=== PATIENT | male | born 1945 | race Caucasian/White ===

== ENCOUNTER 2021-02-28 09:16 | Outpatient (CLI) | payer OTHER, SELFPAY ==
--- NOTE | 2021-02-28 09:23 | USCV_ITS ---
BeniRamesh Age: 75 Gender: M : 1945 Exam Date: 02/28/2021 09:36 Ordering Phys: Surekha Pond MD Technologist: MARCELO BUSTAMANTE [place] [facility] [place] Indication: KNOWN AAA AND ILIAC AA HISTORY: Diameter (cm) AP x Transverse x Length Velocity (cm/s) Waveform Prox Aorta: 1.70 x 2.18 x 27.50 Mid Aorta: 1.38 x 2.29 x 31.80 Distal Aorta: 2.98 x 2.53 x 27.50 Right Iliac Prox: 1.96 x 2.66 x Left Iliac Prox: 2.71 x 2.96 x 40.50 Stent Prox Landing x x Aneurysmal Sac Max x x Lt Lat Sac Dim Rt Lat Sac Dim Stent Dist Landing x x Right Iliac Stent x x Left Iliac Stent x x Right Renal Art Left Renal Art FINDINGS: Mild to moderate plaque in the iliac arteries bilaterally Aneurysmal dilatation of the iliac arteries bilaterally CONCLUSIONS #1. Ectatic distal abdominal aorta measuring 2.98 x 2.53 cm. #2. Iliac artery aneurysms bilaterally, measuring 1.96 x 2.66 on the right side and 2.71 x 2.96 on the left side. No similar previous studies are available for comparison Dr Gary Camacho MD [facility] (Electronically Signed) Final Date: 01 March 2021 15:39 S
== END 2021-02-28 09:17 | disposition home or self-care (01) ==
LOC: US 09:19
PROVIDERS: PCP Family Medicine; Visit Provider Family Medicine
DX: I71.4 Abdominal aortic aneurysm, without rupture (principal); I72.3 Aneurysm of iliac artery
CPT/HCPCS: 93978

== ENCOUNTER 2021-05-30 07:48 | Outpatient (CLI) | payer OTHER, SELFPAY ==
--- NOTE | 2021-05-30 08:00 | CT_ITS ---
WS: [id number] CTA ABDOMINAL AORTA WITH RUNOFF TECHNIQUE: Contrast enhanced CTA of the abdominal aorta with bilateral lower extremity runoff. Multip lanar reformatted images were obtained. MIP reformats were also reviewed. CLINICAL INFORMATION: M79.606 - Pain in leg, unspecified COMPARISON: CTa 2017 DLP: 2006.[address] scans at [facility] use at least one of these dose optimization techniques: automated e xposure control; mA and/or kV adjustment per patient size (includes targeted exams where dose is matc hed to clinical indication); or iterative reconstruction. FINDINGS: Infrarenal abdominal aortic aneurysm measuring 3.2 x 3.1 CM. This celiac and SMA are patent . Mild stenosis at the celiac origin. Renal arteries are patent. JENI is patent. RIGHT: Densely calcified iliac arteries. Right common iliac artery is patent. Internal iliac artery i s patent. Densely calcified external iliac artery with moderate segmental stenosis remains patent. Ri ght common femoral artery is patent with dense calcification. Approximately 50% right common femoral stenosis in the groin slightly progressed. Deep femoral artery is patent. Superficial femoral artery is patent at the origin with moderate segmental stenosis. High-grade SFA stenosis in the mid thigh ap pears similar but slightly progressed compared to previous. Superficial femoral artery is patent to t he popliteal hiatus. Popliteal artery is patent to the popliteal fossa and is occluded at the level of the aneurysm. Aneurysm is similar in appearance measuring 2.6 x 1.3 x 3.1 cm. Reconstitution of th e calf arteries with tiny patent posterior tibial and peroneal runoff. No significant flow in the ant erior tibial artery. LEFT: Left common iliac artery is patent. Densely calcified iliac arteries. Severe stenosis of the in ternal iliac artery origin. External iliac artery is densely calcified but patent. Common femoral art rosalee is patent. Superficial femoral artery is occluded at the origin. Deep femoral artery is patent. S uperficial femoral artery remains occluded to the popliteal hiatus. Reconstitution of flow in the pop liteal artery patent to the trifurcation. 2 vessel posterior tibial and peroneal runoff. No significa nt flow in the anterior tibial artery. Hepatomegaly. Cholelithiasis. Normal spleen. Normal GE junction. Fatty atrophy of the pancreas. Adren al glands are normal. Normal renal parenchymal enhancement. No hydronephrosis. Sigmoid diverticulosis. No evidence of acute diverticulitis. No abdominal or pelvic lymphadenopathy. No inguinal lymphadenopathy. Hazy atelectasis in the lung bases. MPRESSION: 1. Infrarenal abdominal aortic aneurysm measuring 3.2 x 3.1 CM. Stable compared to previous 2. RIGHT: 50% stenosis in the right common femoral artery in the groin. High-grade stenosis in the S FA in the mid thigh appears slightly progressed. Popliteal artery is occluded at the level of the thr ombosed aneurysm. Calf arteries reconstitute with two-vessel posterior tibial and peroneal runoff sim ilar to 2017. Stable appearing popliteal aneurysm with thrombosis. 3. LEFT: Left superficial femoral artery is occluded and remains occluded to the adductor hiatus. Re constitution of the popliteal artery with flow to the trifurcation. Dominant posterior tibial and per hankins runoff. No significant flow in the anterior tibial artery. Left-sided arterial findings are unc hanged. 4. Nonvascular findings as described above.
[2021-05-30 08:36] LABS: Blood Urea Nitrogen 11 mg/dL (8-23)
[2021-05-30] MEDS: iohexol 350 mg/mL 100 mL Btl IV (15:00)
== END 2021-05-30 07:49 | disposition home or self-care (01) ==
PROVIDERS: PCP Family Medicine; Visit Provider Thoracic Surgery (Cardiothoracic Vascular Surgery)
DX: M79.606 Pain in leg, unspecified (principal); I71.4 Abdominal aortic aneurysm, without rupture; I70.8 Atherosclerosis of other arteries
CPT/HCPCS: 75635; 82565; 84520; Q9967

== ENCOUNTER → 2021-07-02 09:43 | Outpatient (BNVA) | payer OTHER, SELFPAY | PROVIDERS: PCP Family Medicine; Referring Provider Internal Medicine Cardiovascular Disease; Visit Provider Internal Medicine Cardiovascular Disease | DX: Z01.818 Encounter for other preprocedural examination (principal); I73.9 Peripheral vascular disease, unspecified; I10 Essential (primary) hypertension; E11.9 Type 2 diabetes mellitus without complications; Z20.822 Contact with and (suspected) exposure to COVID-19 | CPT/HCPCS: 80048; 85025; 85610 ==

== ENCOUNTER 2021-07-18 05:55 | Outpatient (CLI) | payer OTHER, SELFPAY ==
[2021-07-02 16:06] LABS: Adenovirus Not Detected (NOT DETECT); Chlamydia Pneumoniae Not Detected (NOT DETECT); Coronavirus 229E,HKU1,NL63,OC4 Not Detected (NOT DETECT); Human Metapneumovirus Not Detected (NOT DETECT); Human Rhinovirus/Enterovirus Not Detected (NOT DETECT); Influenza A Not Detected (NOT DETECT); Influenza A H1 Not Detected (NOT DETECT); Influenza A H1-2009 Not Detected (NOT DETECT); Influenza A H3 Not Detected (NOT DETECT); Influenza B Not Detected (NOT DETECT); Mycoplasma Pneumoniae Not Detected (NOT DETECT); Parainfluenza Virus Type 1 Not Detected (NOT DETECT); Parainfluenza Virus Type 2 Not Detected (NOT DETECT); Parainfluenza Virus Type 3 Not Detected (NOT DETECT); Parainfluenza Virus Type 4 Not Detected (NOT DETECT); Respiratory Syncytial Virus A Not Detected (NOT DETECT); Respiratory Syncytial Virus B Not Detected (NOT DETECT); SARS-COV-2 Not Detected (NOT DETECT)
[2021-07-18 06:20] VITALS: BP 137/80; PULSE 61; RESP 18; TEMP 36.2; O2SAT 96; BMI 32.3
[2021-07-18] MEDS: diphenhydrAMINE 50 mg Capsule PO (06:44)
--- NOTE | 2021-07-18 08:48 | PC.NURSE ---
Dr. Moore determined the patient would be better served with a surgery consult. After speaking with the patient and family the patient should go home.
== END 2021-07-18 05:56 | disposition home or self-care (01) ==
PROVIDERS: PCP Internal Medicine; Visit Provider Internal Medicine Cardiovascular Disease
DX: I73.9 Peripheral vascular disease, unspecified (principal); Z53.9 Procedure and treatment not carried out, unspecified reason
CPT/HCPCS: 36415; 87635; J1644; J2250; J3010; J3490; J7030; Q0163

== ENCOUNTER 2021-08-16 06:09 | Outpatient (CLI) | payer OTHER, SELFPAY ==
--- NOTE | 2021-08-16 | USCV_ITS ---
Ramesh Bazan Age: 76 Gender: M : 1945 Exam Date: 08/16/2021 06:16 Ordering Phys: Surekha Pond MD Technologist: [place] [facility] [place]: aaa HISTORY: Diameter (cm) AP x Transverse x Length Velocity (cm/s) Waveform Prox Aorta: 1.79 x 2.16 x 42.70 Biphasic Mid Aorta: 2.68 x 2.44 x 40.60 Biphasic Distal Aorta: 3.52 x 3.36 x 40.00 Biphasic Right Iliac Prox: 1.26 x 1.65 x 48.50 Biphasic Left Iliac Prox: 1.77 x 1.55 x 38.80 Biphasic Stent Prox Landing x x Aneurysmal Sac Max x x Lt Lat Sac Dim Rt Lat Sac Dim Stent Dist Landing x x Right Iliac Stent x x Left Iliac Stent x x Right Renal Art Left Renal Art FINDINGS: CONCLUSIONS Aneurysmal distal abdomimal aorta measuring 3.5 x 3.3cm progressed compared to 02/27 Aneurysmal Right iliac artery measuring 1.2 x 1.6cm Aneurysmal Left iliac artery measuring 1.7 x 1.5cm Ashok Drake MD (Electronically Signed) Final Date: 16 August 2021 09:47 S
== END 2021-08-16 06:10 | disposition home or self-care (01) ==
LOC: RAD 06:09
PROVIDERS: PCP Internal Medicine; Visit Provider Family Medicine
DX: I71.4 Abdominal aortic aneurysm, without rupture (principal)
CPT/HCPCS: 76706

== ENCOUNTER → 2021-09-13 09:48 | Outpatient (BNVA) | payer OTHER, SELFPAY | PROVIDERS: PCP Internal Medicine; Visit Provider Thoracic Surgery (Cardiothoracic Vascular Surgery) | DX: I71.4 Abdominal aortic aneurysm, without rupture (principal); Z79.82 Long term (current) use of aspirin; Z87.891 Personal history of nicotine dependence | CPT/HCPCS: 99213; 99214 ==

== ENCOUNTER 2021-10-12 05:50 | Day surgery (SDC) | payer OTHER, SELFPAY ==
[2021-10-12] VITALS (22 sets, daily range): BP systolic 96–124; BP diastolic 61–75; PULSE 57–95; RESP 11–23; TEMP 36.3–37; O2SAT 84–98; BMI 32.2
--- NOTE | 2021-10-12 06:00 | XACV_ITS ---
Ht: 180 cm Wt: 105 kg BSA: 2.32 m2 Any Known Allergies: No known allergies Gender: Male : 1945 Exam Type: Invasive Peripheral Vascular Procedure(s): Procedure Description: Peripheral Cath Diagnostic Procedure Procedure Description: Lower extremities' angiography Exam Priority: Routine Lower Extremity Diagnostic Findings Patient was brought in today for purposes of angiography of the right lower extremity in an attempt at intervention to the right superficial femoral artery. 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 Intervention was considered to perhaps assist with the inflow to improve the collateral flow beyond the knee to the distal leg. Angiography of the right lower extremity reveals tortuous vessels proximally with heavy calcification of the distal abdominal aorta, aneurysmal dilatation of the right common iliac with mild diffuse disease and heavy calcification there as well. The external iliac and common femoral artery on the right are patent with mild diffuse disease and heavy calcification. The profunda femoris is patent. The superficial femoral artery is very heavily calcified and is 99% stenosed in the proximal region with relatively little flow distally. At the level of the knee the popliteal artery is occluded. Calcification extends from the ostium of the common iliac on the right all the way down to the knee. There is some collateral flow which has developed from vessels emanating from the superficial femoral artery to the trifurcation vessels below. I was able to get a Glidewire down to the knee but even a relatively small 4 mm deflated balloon would barely go around the aortic bifurcation. I was able to get it down to the common femoral artery but was not able to get the balloon into the superficial femoral artery. Therefore I did not make an attempt to place a crossover sheath because due to the heavy calcification it would never have gone around the aortic bifurcation. Therefore, I terminated the procedure at this point and we will continue to treat him medically. Conclusions Nearly occluded superficial femoral artery with extreme heavy calcification and inability to pass a balloon catheter. Occluded popliteal artery at the level of the knee with mild to moderate collateralization to the trifurcation vessels below the knee. Recommendations Continued medical therapy. Hemodynamic Data Phase:Rest AO : 91.0 / 54.0 ( 71.0 ) @ 8:13:00 AM Access Site Site: Right Femoral artery Sheath Size: 6 Fr Hemost... Method: Suture Hemost... Success: Successful Procedure Details Findings Pre-Procedure Time Out. Identified patient by full name and date of as verbalized by the patient/guarantor. Does the consent match the physician's order: Yes. Accurate & Complete Informed Consent: Yes. Inpatient/Outpatient History & Physical on Chart: Yes. If H&P is completed, is and addenduem needed: N/A; If yes, is the addendum complete: N/A. Visualize and Verify Site with Patient/Guarantor: N/A. Relevant Radiology Images available: Yes. Pre-op teaching completed and patient verbalized understanding. The risks, benefits, and alternatives of sedation and/or procedure were discussed by physician. The patient agrees to continue. Procedure started. Admissions Advisor Indications:PVD. Correct patient, site and procedure confirmed by cath team. Current diagnosis: PVD. PERRLA. 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 Lungs clear x 5 lobes. IV Site on Arrival: 20 gauge in the left anticubital. Pre Procedural Pulses: bilateral posterior tibial was 1+. Pre Procedural Pulses: bilateral dorsalis pedis was Doppled. Oxygen started at 2liters/min via nasal canula. right groin was prepped with chloroprep then draped in the usual sterile fashion. left groin was prepped with chloroprep then draped in the usual sterile fashion. Physician notified. Baseline sample Acquired. HR: 57 BPM. Physician arrived. Physician scrubbed in. Time out performed with cath team. Admit Source: Out Patient. Lidocaine 1% infiltrated to the left groin. Arterial access obtained. A 5FrFr RIM catheter in over wire. Right common femoral selected and arteriogram with runoff performed @ 10 mL/sec for a total of 30 mL. Glidewire inserted and positioned in the SFA. Rim catheter removed over the wire. Balloon inserted to the superficial femoral. Unable to cross SFA lesion with balloon. Balloon and wire removed. A Suture was successful obtaining hemostatsis at the Right Femoral artery insertion site. Post Procedure: Pulses reassessed and unchanged. PERRLA. 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 No VTE prophylaxis required. Medication's Wasted: Heparin = 1000 u. Total IV fluids: 40 mL. Post-op diagnosis: PVD. Complications: none. Estimated blood loss: 5mL-10mL. Responsiveness - Normal response to verbal stimuli; alert and oriented, PERRLA. Airway - Unaffected, no intervention required; spontaneous ventilation. Circulation: W/N/L, pulses unchanged. Nausea/Vomiting: No. Procedure completed. Patient transferred by bed to 1st floor. Vital chart was stopped. Procedure Medications Start: 7:05 AM Stop: 7:05 AM Medication: Fentanyl Amount: 50 mcg Route: I.V. Start: 7:05 AM Stop: 7:05 AM Medication: Versed Amount: 1 mg Route: I.V. I, the attending physician, have reviewed and verified all procedure medications. Yes, all medications given per verbal order History/Risk Factors Hypertension: No Dyslipidemia: No Peripheral Arterial Disease (PAD): Yes Obesity: Yes Renal Disease: No Tobacco Use: Former Prior Interventions PCI: No CABG: No Valve Surgery: No Report Signatures Finalized by Dr. David Swift MD on 10/12/2021 07:55 AM
[2021-10-12] MEDS: diphenhydrAMINE 50 mg Capsule PO (06:10)
[2021-10-12 06:21] LABS: Basophils # 0.1 10^3/uL (0.0-0.1); Eosinophils # 0.3 10^3/uL (0.0-0.8); Eosinophils % 4.4 %; Hematocrit 50.2 % (42.0-52.0); Hemoglobin 16.3 g/dL (11.7-16.6); Lymphocytes # 1.6 10^3/uL (0.8-4.8); Lymphocytes % 26.1 %; Mean Corpuscular HGB Conc 32.5 g/dL (30.0-36.0); Mean Corpuscular Volume 92.4 fl (80-94); Monocytes # 0.5 10^3/uL (0.2-0.9); Monocytes % 7.7 %; Neutrophils # 3.71 10^3/uL (1.8-7.7); Neutrophils % 60.5 %; Nucleated Red Blood Cells % 0 %; Platelet Count 189 10^3/cmm (130-400); Red Blood Count 5.43 10^6/uL (4.1-5.3); Red Cell Distribution Width 14.1 % (12.1-15.1); White Blood Count 6.1 10^3/uL (4.0-10.0)
[2021-10-12 06:32] LABS: Anion Gap 13.1 (5-19); Blood Urea Nitrogen 18 mg/dL (8-23); Calcium 9.7 mg/dL (8.5-10.5); Carbon Dioxide 28 mmol/L (22-29); Chloride 102 mmol/L (98-107); Glucose 149 mg/dL (65-115); Osmolality Calculated 293 mOsm/kg (285-295); Potassium 4.1 mmol/L (3.5-5.1); Sodium 139 mmol/L (136-145)
--- NOTE | 2021-10-12 08:08 | PC.NURSE ---
HR: 59 RR:13 O2:92 BP: 112/66
--- NOTE | 2021-10-12 13:22 | PM.MISC ---
Miscellaneous Note Note: Patient was brought in electively to attempt angioplasty of the right superficial femoral artery. He has an occluded popliteal on the right with a popliteal aneurysm. There is a significant lesion in the right superficial femoral artery. The intent was to open the SFA to improve downstream flow and improve the collaterals below the knee. Unfortunately, the patient has extraordinarily heavy calcification in the vessels. I was able to pass a wire across the lesion however was not able to get a 4 mm deflated balloon down to the lesion. The procedure was terminated. He will be followed up as per usual and medical treatment continued. I discussed this in detail with him and his .
--- NOTE | 2021-11-09 12:04 | PM.MISC ---
Miscellaneous Note Note: The patient was seen slightly less than 1 month prior to the procedure by Dr. Porter in the office. He has severe peripheral arterial disease and is being brought in for purposes of an attempt at intervention to the right lower extremity below the hip. Since the procedure scheduled, the patient has had no change in his symptoms and no change in his physical examination. His medications have not changed.
== END 2021-10-12 16:15 | disposition home or self-care (01) ==
LOC: CCL 05:51 → CSU 08:04
PROVIDERS: PCP Internal Medicine; Visit Provider Internal Medicine Cardiovascular Disease
DX: I70.201 Unspecified atherosclerosis of native arteries of extremities, right leg (principal); E66.9 Obesity, unspecified; Z68.32 Body mass index [BMI] 32.0-32.9, adult; Z87.891 Personal history of nicotine dependence
CPT/HCPCS: 36415; 75710; 80048; 85025; 99152; 99153; C1769; C1887; C1894; J1644; J2250; J3010; J7030; Q0163; Q9967

== ENCOUNTER → 2021-10-29 09:56 | Outpatient (BNVA) | payer OTHER, SELFPAY | PROVIDERS: PCP Internal Medicine; Visit Provider Nurse Practitioner Family | DX: I73.9 Peripheral vascular disease, unspecified (principal); Z87.891 Personal history of nicotine dependence | CPT/HCPCS: 99213; 99214 ==

== ENCOUNTER 2021-11-01 07:24 | Outpatient (CLI) | payer MEDICARE, SELFPAY ==
[2021-11-01 08:12] LABS: Anion Gap 14.4 (5-19); Blood Urea Nitrogen 15 mg/dL (8-23); Calcium 9.4 mg/dL (8.5-10.5); Carbon Dioxide 26 mmol/L (22-29); Chloride 105 mmol/L (98-107); Glucose 113 mg/dL (65-115); Osmolality Calculated 294 mOsm/kg (285-295); Potassium 4.4 mmol/L (3.5-5.1); Sodium 141 mmol/L (136-145)
== END 2021-11-01 07:25 | disposition home or self-care (01) ==
LOC: LAB 07:31
PROVIDERS: PCP Internal Medicine; Visit Provider Nurse Practitioner Family
DX: I73.9 Peripheral vascular disease, unspecified (principal)
CPT/HCPCS: 80048

== ENCOUNTER 2021-11-16 12:37 | Outpatient (CLI) | payer OTHER, SELFPAY ==
--- NOTE | 2021-11-16 12:49 | CT_ITS ---
WS: [id number] CT CHEST TECHNIQUE: Contrast enhanced CT of the chest with coronal and sagittal reformatted images. CLINICAL INFORMATION: ABNORMAL CHEST XRAY COMPARISON: None. DLP: 793.[address] scans at [facility] use at least one of these dose optimization techniques: automated e xposure control; mA and/or kV adjustment per patient size (includes targeted exams where dose is matc hed FINDINGS:Moderate paraseptal chronic emphysematous changes. Bibasilar atelectasis. No focal consolida tion. Mild interstitial thickening in the lung bases. Nonspecific opacity subpleural LEFT upper lobe along the fissure measuring 1.2 x 0.8 cm. Associated pleural thickening. Recommend interval follow-up chest CT in 3 months. This may be infectious or inflammatory but neoplasm not excluded. No visualize d left-sided rib fractures. Mild aortic calcification. Normal caliber thoracic aorta. Proximal main pulmonary arteries appear nor mal. Coronary calcification. No mediastinal or hilar lymphadenopathy. Normal caliber descending thora cic aorta. Adrenal glands are normal. Fatty atrophy of the pancreas. Cholelithiasis. Normal portal vein and sple herlinda vein. Normal GE junction. No axillary lymphadenopathy. Mild thoracic curve. Mild thoracic kyphosis. CT/CT chest w con* [id number] IMPRESSION: 1. Moderate chronic emphysematous changes. No acute pulmonary infiltrates. 2. Chronic pleural thickening in the lung bases. Mild chronic appearing inters titial thickening in the lung bases with slight bibasilar atelectasis. 3. Nonspecific opacity LEFT upper lobe along the fissure measuring 1.2 x 0.7 c m subpleural in location. Recommend 3 month follow-up chest CT. 4. No mediastinal or hilar lymphadenopathy. 5. Aortic and coronary calcification. 6. Cholelithiasis. 7. No visualized left-sided rib fractures.
[2021-11-16] MEDS: iohexol 300 mg/mL 100 mL Btl IV (13:21)
== END 2021-11-16 12:38 | disposition home or self-care (01) ==
LOC: RAD 12:39
PROVIDERS: PCP Internal Medicine; Visit Provider Emergency Medicine Emergency Medical Services
DX: R91.8 Other nonspecific abnormal finding of lung field (principal); J92.9 Pleural plaque without asbestos
CPT/HCPCS: 71260

== ENCOUNTER 2022-02-25 06:15 | Outpatient (CLI) | payer OTHER, SELFPAY ==
--- NOTE | 2022-02-25 06:15 | USCV_ITS ---
Ramesh Bazan Age: 76 Gender: M : 1945 Exam Date: 02/25/2022 06:29 Ordering Phys: Ike Porter MD (Andy) ([email or web address]) Technologist: [place]am [place] [facility] [place] Indication: aaa HISTORY: Diameter (cm) AP x Transverse x Length Velocity (cm/s) Waveform Prox Aorta: 2.10 x 2.14 x 67.70 Mid Aorta: 1.62 x 2.73 x 72.50 Distal Aorta: 3.41 x 3.30 x 58.00 Right Iliac Prox: 1.10 x 1.03 x 78.70 Left Iliac Prox: 1.14 x 0.94 x 96.70 Stent Prox Landing x x Aneurysmal Sac Max x x Lt Lat Sac Dim Rt Lat Sac Dim Stent Dist Landing x x Right Iliac Stent x x Left Iliac Stent x x Right Renal Art Left Renal Art FINDINGS: Comparison: 08/16/21 A fusiform abdominal aortic aneurysm is noted with a maximal diameter of 3.4 cm. No progression since the prior exam. Mild ectasia and dilatation of the iliac arteries with no progression. CONCLUSIONS Stable AAA, maximum diameter of 3.4 cm. Mildly ectatic iliac arteries, stable. Dr. Minna Ballard DO (Electronically Signed) Final Date: 25 February 2022 08:34 S
== END 2022-02-25 06:16 | disposition home or self-care (01) ==
LOC: RAD 06:16
PROVIDERS: PCP Internal Medicine; Visit Provider Thoracic Surgery (Cardiothoracic Vascular Surgery)
DX: I71.4 Abdominal aortic aneurysm, without rupture (principal)
CPT/HCPCS: 93978

== ENCOUNTER 2022-03-18 08:19 | Outpatient (CLI) | payer OTHER, SELFPAY ==
--- NOTE | 2022-03-18 08:30 | CT_ITS ---
WS: [id number] CT CHEST WITH INTRAVENOUS CONTRAST HISTORY: ABNORMAL CT CHEST FISSURE MEASURING 1.2X.7CM TECHNIQUE: Contiguous 5 mm axial imaging performed on the thorax. Coronal and sagittal reformats are submitted. All CT scans at [facility] use at least one of these dose optimization techniques: automated exposure control; mA and/or kV adjustment per patient size (includes targeted exams where dose is matched to clinical indication); or iterative reconstruction. CONTRAST: Omnipaque 350; 95 mL IV. DLP: 739.92 mGy.cm COMPARISON: 11/16/2021 Lungs and central airway: Hyperinflated lungs with interstitial thickening and changes of centrilobul ar emphysema. Focal airspace disease along the LEFT major fissure is reidentified measuring 15 x 7 mm . Not significantly increased in size but also has not resolved. Irregular nodule is adjacent to pleu ral thickening. Pleura: Normal. No pleural effusion. Heart and pericardium: Normal size heart with no pericardial effusion. Mediastinum and clark: No mediastinum or hilar adenopathy. Vessels: Mild atherosclerosis aorta. No aneurysm. Normal size pulmonary artery. Chest wall and lower neck: No soft tissue masses. Upper abdomen: Hepatic steatosis. Cholelithiasis without acute cholecystitis. No adrenal mass. Fatty replacement of the pancreas. Osseous structures: No destructive process. CT/CT chest w con* [id number] IMPRESSION: 1. No change in the focal opacification adjacent to pleural thickening along t he LEFT fissure. Opacification measures 15 x 7 mm without significant increase in size. Recommend continued follow-up. Recommend chest CT with IV contrast in 6 months. 2. No adenopathy. 3. Chronic emphysema. 4. Cholelithiasis.
[2022-03-18 08:59] LABS: Blood Urea Nitrogen 15 mg/dL (8-23)
[2022-03-18] MEDS: iohexol 350 mg/mL 100 mL Btl IV (09:06)
== END 2022-03-18 08:20 | disposition home or self-care (01) ==
PROVIDERS: PCP Internal Medicine; Visit Provider Family Medicine
DX: R93.89 Abnormal findings on diagnostic imaging of other specified body structures (principal); J43.9 Emphysema, unspecified; K80.20 Calculus of gallbladder without cholecystitis without obstruction
CPT/HCPCS: 71260; 82565; 84520

== ENCOUNTER → 2022-04-11 09:41 | Outpatient (BNVA) | payer OTHER, SELFPAY | PROVIDERS: PCP Internal Medicine; Visit Provider Thoracic Surgery (Cardiothoracic Vascular Surgery) | DX: I71.43 Infrarenal abdominal aortic aneurysm, without rupture (principal); R91.1 Solitary pulmonary nodule; Z87.891 Personal history of nicotine dependence | CPT/HCPCS: 99213 ==

== ENCOUNTER 2022-05-15 09:41 | Outpatient (RCR) | payer OTHER, SELFPAY | END 2022-06-08 23:59 | disposition home or self-care (01) | LOC: SPT 09:41 | PROVIDERS: PCP Internal Medicine; Visit Provider Family Medicine | DX: R27.0 Ataxia, unspecified (principal) | CPT/HCPCS: 97110; 97112; 97161; 97530 ==

== ENCOUNTER 2022-05-21 14:54 | Outpatient (CLI) | payer OTHER, SELFPAY ==
--- NOTE | 2022-05-21 15:21 | USCV_ITS ---
BeniRamesh glass Age: 77 Gender: M : 1945 Exam Date: 05/21/2022 15:26 Ordering Phys: Ike Porter MD (Andy) ([email or web address]/[facility] [place]) Technologist: CT [place]am Location: [facility] [place]ication: syncope Risk Factors: Previous Vascular Surgery: Right Brachial BP: / Left Brachial BP: / Right Left Velocity (cm/s) Spectral Plaque Velocity (cm/s) Spectral Plaque Syst/Diast Broadening Syst/Diast Broadening 72.60/ 15.40 Prox CCA 97.00 / 16.50 70.90/ 12.80 Mid CCA 78.60 / 16.20 53.60/ 14.00 Distal CCA 89.70 / 21.40 50.40/ 15.60 Prox ICA 28.50 / 9.80 58.90/ 20.50 Mid ICA 40.40 / 14.30 35.90/ 11.80 Distal ICA 63.10 / 16.40 80.00 ECA 65.10 0.81 ICA/CCA 0.65 Antegrade Vertebral Antegrade 38.80/ 13.10 cm/s 42.70/ 11.50 cm/s Bi Subclavian Bi 76.90 112.4 0 FINDINGS no stenosis CONCLUSIONS Right ICA stenosis <50%. Mild atheromatous plaque right carotid bulb/ICA. Left ICA stenosis <50%. Mild atheromatous plaque left carotid bulb/ICA. Normal antegrade Doppler flow noted in the right vertebral artery. Normal antegrade Doppler flow noted in the left vertebral artery. Ashok Drake MD (Electronically Signed) Final Date: 21 May 2022 16:20 S
== END 2022-05-21 14:55 | disposition home or self-care (01) ==
PROVIDERS: PCP Internal Medicine; Visit Provider Family Medicine
DX: I65.23 Occlusion and stenosis of bilateral carotid arteries (principal); R55 Syncope and collapse
CPT/HCPCS: 93880

== ENCOUNTER 2022-06-09 06:00 | Outpatient (RCR) | payer OTHER, SELFPAY | END 2022-07-04 16:26 | disposition home or self-care (01) | LOC: SPT 06:00 | PROVIDERS: PCP Internal Medicine; Visit Provider Family Medicine | DX: R27.0 Ataxia, unspecified (principal) | CPT/HCPCS: 97110; 97112 ==

== ENCOUNTER → 2022-08-20 09:36 | Outpatient (BNVA) | payer OTHER, SELFPAY | PROVIDERS: PCP Internal Medicine; Visit Provider Podiatrist Foot & Ankle Surgery | DX: I73.9 Peripheral vascular disease, unspecified (principal); E11.8 Type 2 diabetes mellitus with unspecified complications; E11.42 Type 2 diabetes mellitus with diabetic polyneuropathy; M79.89 Other specified soft tissue disorders; M21.621 Bunionette of right foot; M21.622 Bunionette of left foot; Z79.84 Long term (current) use of oral hypoglycemic drugs | CPT/HCPCS: 73630; 93923; 99204 ==

== ENCOUNTER 2022-11-11 08:21 | Outpatient (CLI) | payer OTHER, SELFPAY ==
--- NOTE | 2022-11-11 08:36 | CT_ITS ---
WS: [id number] CT chest w con* [id number] HISTORY: CHEST MASS FOLLOW UP TECHNIQUE: Axial imaging performed through the thorax. Coronal and sagittal reformats are submitted. All CT scans at [facility] use at least one of these dose optimization techniques: automated exposure control; mA and/or kV adjustment per patient size (includes targeted exams where dose is mat ched to clinical indication); or iterative reconstruction. CONTRAST: Omnipaque 350; 100 mL IV. DLP: 446.33 mGy.cm COMPARISON: 03/18/2022, 11/16/2021 Lungs and central airway: Severe centrilobular emphysema. Hyperinflated lungs. Reticular thickening i n the periphery. Increased amount of pleural fat and pleural thickening in the lower lung denise. The soft tissue opacification adjacent to the pleural thickening has not changed in size. There is opaci fication measures approximately 18 x 8 mm. Pleura: Pleural thickening and pleural fat increased deposition. Heart and pericardium: Normal size heart with no pericardial effusion. Mediastinum and clark: No mediastinum or hilar adenopathy. Vessels: Atherosclerosis aorta. Very mildly prominent pulmonary artery. Chest wall and lower neck: No soft tissue masses. Upper abdomen: Cholelithiasis without acute cholecystitis. No adrenal mass. Extensive calcification i n the mesenteric arteries visualized within the upper abdomen. Component of stenosis likely at the or igins of the celiac axis and SMA. Osseous structures: No destructive process. CT/CT chest w con* [id number] IMPRESSION: 1. Stable pleural thickening and increased fat deposition and pleural nodulari ty in the LEFT thorax since 11/16/2021. Consider additional [address] follow-u p to document long-term stability. 2. Chronic emphysema. 3. Atherosclerosis aorta. 4. Pulmonary hypertension. 5. Cholelithiasis without acute cholecystitis.
[2022-11-11] MEDS: iohexol 350 mg/mL 500 mL Btl (per mL) IV (09:13)
== END 2022-11-11 08:22 | disposition home or self-care (01) ==
LOC: RAD 08:23
PROVIDERS: PCP Internal Medicine; Visit Provider Family Medicine
DX: R22.2 Localized swelling, mass and lump, trunk (principal); J43.9 Emphysema, unspecified; I70.0 Atherosclerosis of aorta; I27.20 Pulmonary hypertension, unspecified; K80.20 Calculus of gallbladder without cholecystitis without obstruction
CPT/HCPCS: 71260; Q9967

== ENCOUNTER 2023-02-11 13:01 | Outpatient (CLI) | payer OTHER, SELFPAY ==
--- NOTE | 2023-02-11 13:52 | XRR_ITS ---
PROCEDURE INFORMATION: Exam: XR Chest Exam date and time: 02/11/2023 2:05 PM Age: 77 years old Clinical indication: Condition or disease; Other: Sinusitis TECHNIQUE: Imaging protocol: Radiologic exam of the chest. Views: 2 views. COMPARISON: CT chest w con* [id number] 11/11/2022 9:07 AM FINDINGS: Lungs: Emphysematous change with suggestion of chronic interstitial type lung changes or fibrosis, particularly lower lungs. Mild chronic pleural thickening laterally lower left chest. Correlation is made with prior CT chest November 11, 2022. No focal consolidation. No significant pleural effusion. No pneumothorax. Pleural spaces: See Lungs finding. Heart/Mediastinum: Cardiac silhouette is at the upper limits of normal. Vasculature: Arteriosclerosis of the thoracic aorta. Bones/joints: Visualized osseous structures show no acute abnormality. XR/XR chest 2V* [id number] IMPRESSION: Emphysematous change with chronic lung changes in relation to prior CT chest. No consolidation or effusion.
== END 2023-02-11 13:02 | disposition home or self-care (01) ==
LOC: RT 13:01
PROVIDERS: PCP Internal Medicine; Visit Provider Chiropractor
DX: J01.90 Acute sinusitis, unspecified (principal); R91.8 Other nonspecific abnormal finding of lung field
CPT/HCPCS: 71046; 94010

== ENCOUNTER 2023-04-21 06:34 | Outpatient (CLI) | payer OTHER, SELFPAY ==
--- NOTE | 2023-04-21 07:00 | USCV_ITS ---
Ramesh Bazan Age: 77 Gender: M : 1945 Exam Date: 04/21/2023 06:48 Ordering Phys: Ike Porter MD (Andy) ([email or web address]/[facility] [place]) Technologist: BM Exam Location: [facility] [place] Indication: AAA HISTORY: Diameter (cm) AP x Transverse x Length Velocity (cm/s) Waveform Prox Aorta: 1.95 x 2.23 x 63.90 Triphasic Mid Aorta: 1.90 x 2.05 x 48.90 Triphasic Distal Aorta: 3.18 x 3.08 x 7.62 37.60 Triphasic Right Iliac Prox: 0.96 x 1.45 x 69.20 Triphasic Left Iliac Prox: 1.11 x 1.36 x 56.10 Triphasic Stent Prox Landing x x Aneurysmal Sac Max x x Lt Lat Sac Dim Rt Lat Sac Dim Stent Dist Landing x x Right Iliac Stent x x Left Iliac Stent x x Right Renal Art Left Renal Art FINDINGS: Comparison 02/28 CONCLUSIONS Stable distal fusiform AAA measuring 3.1 x 3.1 x 7.6cm AP x transverse x CC Normal proximal iliac arteries Ashok Drake MD (Electronically Signed) Final Date: 21 April 2023 08:38 S
== END 2023-04-21 06:35 | disposition home or self-care (01) ==
LOC: RAD 06:35
PROVIDERS: PCP Internal Medicine; Visit Provider Thoracic Surgery (Cardiothoracic Vascular Surgery)
DX: I71.40 Abdominal aortic aneurysm, without rupture, unspecified (principal)
CPT/HCPCS: 93978

== ENCOUNTER → 2023-04-23 10:02 | Outpatient (BNVA) | payer OTHER, SELFPAY | PROVIDERS: PCP Internal Medicine; Visit Provider Podiatrist Foot & Ankle Surgery | DX: M79.89 Other specified soft tissue disorders; I73.9 Peripheral vascular disease, unspecified; E11.8 Type 2 diabetes mellitus with unspecified complications; E11.42 Type 2 diabetes mellitus with diabetic polyneuropathy; M21.621 Bunionette of right foot; M21.622 Bunionette of left foot; Z79.84 Long term (current) use of oral hypoglycemic drugs | CPT/HCPCS: 99213 ==

== ENCOUNTER → 2023-05-20 14:47 | Outpatient (BNVA) | payer OTHER, SELFPAY | PROVIDERS: PCP Internal Medicine; Visit Provider Thoracic Surgery (Cardiothoracic Vascular Surgery) | DX: I71.40 Abdominal aortic aneurysm, without rupture, unspecified (principal); R91.1 Solitary pulmonary nodule | CPT/HCPCS: 99213 ==

== ENCOUNTER → 2023-08-27 10:30 | Outpatient (BNVA) | payer OTHER, SELFPAY | PROVIDERS: PCP Internal Medicine; Visit Provider Podiatrist Foot & Ankle Surgery | DX: I73.9 Peripheral vascular disease, unspecified (principal); M25.571 Pain in right ankle and joints of right foot; M79.89 Other specified soft tissue disorders; M21.621 Bunionette of right foot; M21.622 Bunionette of left foot; E11.42 Type 2 diabetes mellitus with diabetic polyneuropathy; L60.3 Nail dystrophy; Z79.84 Long term (current) use of oral hypoglycemic drugs | CPT/HCPCS: 11721; 99213 ==

== ENCOUNTER 2023-10-14 08:09 | Emergency (ER) | payer OTHER, SELFPAY ==
[2023-10-14 08:28] VITALS: BP 94/66; PULSE 102; TEMP 36.6; O2SAT 93; BMI 31.7
[2023-10-14 08:33] VITALS: BP 94/66; PULSE 102; O2SAT 90
--- NOTE | 2023-10-14 08:45 | ED_ITS ---
HPI - Extremity Problem 2 General: Chief complaint: Extremity Problem,Nontraumatic Stated complaint: right leg pain Time Seen by Provider: 10/14/23 08:16 Source: patient Mode of arrival: ambulatory History of Present Illness: 78-year-old male presents emergency room with complaint of right leg pain. He does have some peripheral artery disease tells me has been seeing Dr. Porter for this in the past not elected to do any intervention to this point. He has noticed a lot of foot and ankle pain particularly with activities. No shortness of breath he is very concerned in the perception that his leg is swollen. MD Complaint: extremity pain and extremity swelling Associated symptoms: Deny chest pain, fever(s) or rash Review of Systems 2 Const: Denies: fever(s) or chills Card: Denies: chest pain Resp: Denies: dyspnea GI: Denies: abdominal pain : Denies: dysuria, urinary frequency or urinary urgency Musc: Denies: neck pain or back pain Skin/Breast: Denies: rash PFSH ED 2 PFSH: Medical History PVD (peripheral vascular disease) AAA (abdominal aortic aneurysm) Family History Father CAD (coronary artery disease) Diabetes Hypertension Mother Cancer Social History Smoking and tobacco/nicotine status: former use of tobacco/nicotine Quit status (tobacco/nicotine): has quit using Year quit tobacco: 2003 Former quit date comment: 1 1/2 PACK PER DAY X 30 YEARS Alcohol intake: current Alcohol intake frequency: 0-2 Drinks per Day Substance/Drug Use: never Lives independently: Yes Household members: spouse Housing: House Marital status: Number of children: 1 service: Yes Pets and animals: Yes Current gender identity: Male Physical Exam 2 Const: COMMON NORMALS: no acute distress GENERAL APPEARANCE: cooperative and comfortable ORIENTATION/CONSCIOUSNESS: Yes awake, Yes oriented to person, Yes oriented to place and Yes oriented to time HENMT: COMMON NORMALS: normocephalic, atraumatic and hearing grossly normal bilaterally HEAD & SCALP: normocephalic and atraumatic Resp: COMMON NORMALS: normal respiratory effort, No retractions, No use of accessory muscles and clear to auscultation bilaterally AUSCULTATION: clear to auscultation bilaterally Cardio: COMMON NORMALS: regular rate, regular rhythm and No murmurs present (Cardio) RATE: regular rate RHYTHM: regular rhythm GI: COMMON NORMALS: Soft to palpation and No hepatosplenomegaly present A USCULTATION: Yes normoactive bowel sounds PALPATION: Yes Soft to palpation, No Tenderness to palpation present (GI), No Guarding due to palpation present (GI) and Yes No hepatosplenomegaly present Extremity: COMMON NORMALS: normal to inspection, capillary refill normal, no clubbing, cyanosis or edema, no calf tenderness and no pedal edema Neuro: SENSORIUM/ORIENTATION: Yes oriented to person, Yes oriented to place and Yes oriented to time Skin: COMMON NORMALS: no rashes or lesions noted GENERAL SKIN EXAM: no rashes or lesions noted Course 2 Vital Signs: Vital signs: Vital Signs Temperature 97.8 F 10/14/23 08:28 Pulse Rate 102 H 10/14/23 08:33 Blood Pressure 94/66 10/14/23 08:33 Pulse Oximetry 90 10/14/23 08:33 Oxygen Delivery Me thod Room Air 10/14/23 08:28 MDM - Extremity (Nontraumatic) Medical Decision Making No signs of limb ischemia at this point difficult to palpate pulses but foot is warm with good capillary refill. Mild swelling discomfort of the calf no DVT on venous duplex. Patient reports she is seen Dr. Porter in the past for claudication associated right lower leg is suspected to leg having now. He is currently on cilostazol. Continue current medications follow-up with Dr. Porter if symptoms worsen or develops persistent pain at rest or discoloration of the leg return immediately Medical Records I reviewed the patient's medical records. Lab Data I reviewed the patient's lab results. 10/14/23 08:34 10/14/23 08:34 Laboratory Results WBC 8.13 10^3/uL (3.29-11.43) 10/14/23 08:34 RBC 5.33 10^6/uL (3.85-5.65) 10/14/23 08:34 Hgb 16.00 g/dL (11.27-16.99) 10/14/23 08:34 Hct 48.8 % (37-53) 10/14/23 08:34 MCV 91.6 fl (82-101) 10/14/23 08:34 MCH 30.0 pg (27-33) 10/14/23 08:34 MCHC 32.8 g/dL (30-55) 10/14/23 08:34 RDW 14.7 % (12.1-15.1) 10/14/23 08:34 Plt Count 173 10^3/cmm (157-399) 10/14/23 08:34 MPV 10.1 fL (7.4-10.4) 10/14/23 08:34 Neut % (Auto) 76.8 % 10/14/23 08:34 Lymph % (Auto) 12.5 % 10/14/23 08:34 Isabela % (Auto) 9.1 % 10/14/23 08:34 Eos % (Auto) 1.1 % 10/14/23 08:34 Baso % (Auto) 0.4 % 10/14/23 08:34 Neut # (Auto) 6.24 10^3/uL (1.8-7.7) 10/14/23 08:34 Lymph # (Auto) 1.0 10^3/uL (0.8-4.8) 10/14/23 08:34 Isabela # (Auto) 0.7 10^3/uL (0.2-0.9) 10/14/23 08:34 Eos # (Auto) 0.1 10^3/uL (0.0-0.8) 10/14/23 08:34 Baso # (Auto) 0.0 10^3/uL (0.0-0.1) 10/14/23 08:34 Nucleated RBC % (auto) 0 % 10/14/23 08:34 Nucleated RBCs # 0.0 /100WBC 10/14/23 08:34 Sodium 138 mmol/L (136-145) 10/14/23 08:34 Potassium 4.0 mmol/L (3.5-5.1) 10/14/23 08:34 Chloride 103 mmol/L (98-107) 10/14/23 08:34 Carbon Dioxide 21 mmol/L (22-29) L 10/14/23 08:34 Anion Gap 18.0 (5-19) 10/14/23 08:34 BUN 9 mg/dL (8-23) 10/14/23 08:34 Creatinine 0.8 mg/dL (0.7-1.2) 10/14/23 08:34 GFR Calculation Not Reportable 10/14/23 08:34 Glucose 191 mg/dL (65-115) H 10/14/23 08:34 Calculated Osmolality 290 mOsm/kg (285-295) 10/14/23 08:34 Calcium 9.1 mg/dL (8.5-10.5) 10/14/23 08:34 Total Bilirubin 0.9 mg/dL (0.15-1.2) 10/14/23 08:34 AST 9 U/L (0-40) 10/14/23 08:34 ALT < 5 U/L (0-41) 10/14/23 08:34 Alkaline Phosphatase 47 U/L (40-130) 10/14/23 08:34 Total Protein 7.4 g/dL (6.6-8.7) 10/14/23 08:34 Albumin 4.1 g/dL (3.5-5.2) 10/14/23 08:34 Globulin 3.3 g/dL (1.3-4.6) 10/14/23 08:34 All radiology interpretation(s) finalized by discharge Discharge Plan Discharge Patient Disposition: Home Clinical Impression: Intermittent claudication, Foot pain, right Condition: Stable Prescriptions: No Action metformin 1,000 mg tablet 1,000 mg PO BID aspirin 325 mg tablet 325 mg PO DAILY gabapentin 600 mg tablet 600 mg PO TID cilostazol 100 mg tablet 100 mg PO BID empagliflozin 25 mg tablet 12.5 mg PO DAILY lisinopril 2.5 mg tablet 2.5 mg PO DAILY pantoprazole 20 mg tablet,delayed release (DR/EC) 20 mg PO BID rosuvastatin 10 mg tablet 10 mg PO DAILY glipizide 5 mg tablet 5 mg PO DAILY diclofenac sodium [Arthritis Pain (diclofenac)] 1 % gel 2 g topical BID Rx Instructions: apply to single elbow, wrist or hand; for hand includes palm/fingers/back of hand (DME) Diabetic shoes See Rx Instructions .ROUTE .MEDSUPPLY Qty: 1 0RF Rx Instructions: With 3 pairs of inserts made by the shoe guys (DME) Compression Socks See Rx Instructions .Route .MEDSUPPLY Qty: 1 0RF Rx Instructions: width of right calf:37 left calf:36. 5 (DME) Copolymer 3/4 length Custom Orthotics See Rx Instructions .Route .MEDSUPPLY Qty: 1 0RF Rx Instructions: As directed by [facility] PATIENT (DME) Diabetic shoes See Rx Instructions .ROUTE .MEDSUPPLY Qty: 1 0RF Rx Instructions: with full length low profile inserts by the shoe yesenia tamsulosin 0.4 mg Capsule 0.4 mg PO DAILY Discharge Orders: Discharge ED (Routine); Ordered 10/14/23 Ordered By: Adrian Ndiaye Referrals: Gregg Hardin, [Primary Care Provider] - Discharge Diet: Usual diet Discharge Activity: Resume usual activity Patient Instructions: Opioid Safety, Pain Management Activity Restrictions/Additional Instructions: Thank you for choosing [facility] for your healthcare needs today. Please realize this is an emergency room and that we are providing you with a medical screening exam and this may not be complete and all inclusive of all the testing and or work up that you may need to determine your ailment or severity of your illness. It is very important that you follow up as instructed or that you return to the Emergency Department should you have concerns or if your condition changes or worsens in any way. Follow-up with Dr. Porter Coding Level of Care Code ED Margarine Churn Operator for Ruth Akins
[2023-10-14 08:46] LABS: Basophils % 0.4 %; Eosinophils # 0.1 10^3/uL (0.0-0.8); Eosinophils % 1.1 %; Hematocrit 48.8 % (37-53); Lymphocytes % 12.5 %; Mean Corpuscular HGB Conc 32.8 g/dL (30-55); Mean Corpuscular Volume 91.6 fl (82-101); Mean Platelet Volume 10.1 fL (7.4-10.4); Monocytes # 0.7 10^3/uL (0.2-0.9); Monocytes % 9.1 %; Neutrophils # 6.24 10^3/uL (1.8-7.7); Neutrophils % 76.8 %; Nucleated Red Blood Cells % 0 %; Platelet Count 173 10^3/cmm (157-399); Red Blood Count 5.33 10^6/uL (3.85-5.65); Red Cell Distribution Width 14.7 % (12.1-15.1); White Blood Count 8.13 10^3/uL (3.29-11.43)
--- NOTE | 2023-10-14 08:46 | USCV_ITS ---
Ramesh Bazan Age: 78 Gender: M : 1945 Exam Date: 10/14/2023 09:21 Ordering Phys: Adrian Ndiaye DO Technologist: ARVIND Exam Location: [facility] [place] Indication: RLE PAIN AND SWELLING X2 DAYS HISTORY: Lower extremity swelling. Lower extremity pain. PROCEDURES: Venous duplex imaging was performed in only the right lower extremity. The following venous structures were evaluated: common femoral vein, profunda vein, proximal portion of the greater saphenous vein, superficial femoral vein, and the popliteal vein. In addition, the posterior tibial and peroneal trunk were evaluated. Serial compression, augmentation maneuvers, and spectral Doppler flow evaluation were performed. FINDINGS: Normal 2-D Doppler and augmentation and compressibility throughout the lower extremity venous structures. Additional imaging through the proximal calf veins also reveals no thrombus. Limited evaluation of the greater saphenous vein is patent with no thrombus. CONCLUSIONS No DVT RIGHT lower extremity. Technically limited study. Dr. Minna Ballard DO (Electronically Signed) Final Date: 14 Oct 2023 12:00 Amended: 16 Oct 2023 11:50 C
--- NOTE | 2023-10-14 08:52 | XRR_ITS ---
PROCEDURE INFORMATION: Exam: XR Right Foot Exam date and time: 10/14/2023 9:00 AM Age: 78 years old Clinical indication: Pain; Ankle and foot; Right TECHNIQUE: Imaging protocol: Radiologic exam of the right foot. Views: 3 or more views. COMPARISON: CR XR foot RT min 3V* [id number] 08/20/2022 9:40 AM FINDINGS: Bones/joints: No fracture or other acute abnormality. Joint spaces are unremarkable. Soft tissues: Normal. XR/XR foot RT min 3V* [id number] IMPRESSION: No acute findings.
--- NOTE | 2023-10-14 08:52 | XRR_ITS ---
PROCEDURE INFORMATION: Exam: XR Right Ankle Exam date and time: 10/14/2023 8:58 AM Age: 78 years old Clinical indication: Pain; Ankle and foot; Right TECHNIQUE: Imaging protocol: Radiologic exam of the right ankle. Views: 3 or more views. COMPARISON: No relevant prior studies available. FINDINGS: Bones/joints: No fracture or other acute abnormality. Joint spaces are unremarkable. Soft tissues: Normal. Vasculature: Scattered dystrophic calcifications are probably vascular. XR/XR ankle RT min 3V* [id number] IMPRESSION: No acute findings.
[2023-10-14 09:01] LABS: Alanine Aminotransferase < 5 U/L (0-41); Albumin Level 4.1 g/dL (3.5-5.2); Alkaline Phosphatase 47 U/L (40-130); Aspartate Amino Transferase 9 U/L (0-40); Blood Urea Nitrogen 9 mg/dL (8-23); Calcium 9.1 mg/dL (8.5-10.5); Carbon Dioxide 21 mmol/L (22-29); Chloride 103 mmol/L (98-107); Creatinine Clr Calc Pharmacy 90.4764; Globulin 3.3 g/dL (1.3-4.6); Glucose 191 mg/dL (65-115); Osmolality Calculated 290 mOsm/kg (285-295); Sodium 138 mmol/L (136-145); Total Bilirubin 0.9 mg/dL (0.15-1.2); Total Protein 7.4 g/dL (6.6-8.7)
== END 2023-10-14 10:35 | disposition home or self-care (01) ==
PROVIDERS: Emergency Provider Family Medicine; PCP Internal Medicine
DX: I73.9 Peripheral vascular disease, unspecified (principal); M79.671 Pain in right foot; Z79.82 Long term (current) use of aspirin; Z79.84 Long term (current) use of oral hypoglycemic drugs; Z87.891 Personal history of nicotine dependence
CPT/HCPCS: 36415; 73610; 73630; 80053; 85025; 93971; 99284

== ENCOUNTER 2023-11-06 10:22 | Outpatient (CLI) | payer OTHER, SELFPAY ==
--- NOTE | 2023-11-06 10:34 | CT_ITS ---
WS: [id number] CT chest w con* [id number] HISTORY: FOLLOW UP FOR MASS IN LUNG TECHNIQUE: Axial imaging performed through the thorax. Coronal and sagittal reformats are submitted. All CT scans at [facility] use at least one of these dose optimization techniques: automated exposure control; mA and/or kV adjustment per patient size (includes targeted exams where dose is mat ched to clinical indication); or iterative reconstruction. CONTRAST: Omnipaque 350; 100 mL IV. DLP: 510.50 mGy.cm COMPARISON: 11/11/2022, 03/18/2022 Lungs and central airway: Chronic centrilobular emphysema. Bilateral interstitial thickening in the p eriphery of both lungs. Pleural-based thickening bilaterally in the lower lung denise very similar to the prior study. There is been no obvious change in the pleural thickening and nodularity at the LEF T lung base since 11/16/2021. No new or enlarging mass. Pleura: Normal. No pleural effusion. Heart and pericardium: Normal size heart with no pericardial effusion. Mediastinum and clark: No mediastinum or hilar adenopathy. Vessels: Mild atherosclerosis aorta. Normal size pulmonary artery. Coronary artery calcifications. Chest wall and lower neck: No soft tissue masses. Upper abdomen: Normal adrenal glands. Fatty replacement of the pancreas. Suprarenal aortic calcificat ions. Mesenteric artery calcifications. Osseous structures: No destructive process. CT/CT chest w con* [id number] IMPRESSION: 1. Long-term stability of the pleural thickening with increased fatty depositi on at the lung bases but greatest on the LEFT. No new or enlarging mass or nodu le. 2. Chronic emphysema with interstitial fibrosis. 3. No pneumonia. 4. Atherosclerosis aorta. 5. No adenopathy.
[2023-11-06] MEDS: iohexol 350 mg/mL 500 mL Btl (per mL) IV (11:33)
== END 2023-11-06 10:23 | disposition home or self-care (01) ==
LOC: RAD 10:22
PROVIDERS: PCP Internal Medicine; Visit Provider Family Medicine
DX: J43.2 Centrilobular emphysema (principal); J84.9 Interstitial pulmonary disease, unspecified; J92.9 Pleural plaque without asbestos; I70.0 Atherosclerosis of aorta; K55.1 Chronic vascular disorders of intestine
CPT/HCPCS: 71260; Q9967

== ENCOUNTER → 2023-12-03 14:05 | Outpatient (BNVA) | payer OTHER, SELFPAY | PROVIDERS: PCP Internal Medicine; Visit Provider Podiatrist Foot & Ankle Surgery | DX: E11.8 Type 2 diabetes mellitus with unspecified complications (principal); I73.9 Peripheral vascular disease, unspecified; E11.42 Type 2 diabetes mellitus with diabetic polyneuropathy; L60.3 Nail dystrophy; Z79.84 Long term (current) use of oral hypoglycemic drugs | CPT/HCPCS: 11721 ==

== ENCOUNTER → 2024-03-18 09:53 | Outpatient (BNVA) | payer OTHER, SELFPAY | PROVIDERS: PCP Internal Medicine; Visit Provider Podiatrist Foot & Ankle Surgery | DX: E11.8 Type 2 diabetes mellitus with unspecified complications (principal); I73.9 Peripheral vascular disease, unspecified; L60.3 Nail dystrophy; E11.42 Type 2 diabetes mellitus with diabetic polyneuropathy; S90.512A Abrasion, left ankle, initial encounter; M25.371 Other instability, right ankle; V84.5XXA Driver of special agricultural vehicle injured in nontraffic accident, initial encounter; Z79.84 Long term (current) use of oral hypoglycemic drugs | CPT/HCPCS: 99213 ==

== ENCOUNTER 2024-05-17 07:03 | Outpatient (CLI) | payer OTHER, SELFPAY ==
--- NOTE | 2024-05-17 07:08 | USCV_ITS ---
BeniRamesh Age: 79 Gender: M : 1945 Exam Date: 05/17/2024 07:15 Ordering Phys: Best Correa APRN Technologist: [facility] [place]am [place] [facility] [place] Indication: atherosclerosis Aortic Velocity @ SMA (cm/s) 53.9 RIGHT KIDNEY LEFT KIDNEY Velocity (cm/s) Velocity (cm/s) Sys/Rockwell Sys/Rockwell Resistive Index Resistive Index 60.9 / 18.2 0.70 Proximal Renal Artery 39.5 / 8.6 0.78 40.4 / 9.9 0.76 Mid Renal Artery 68.2 / 19.5 0.71 33.0 / 10.0 0.70 Distal Renal Artery 69.1 / 17.8 0.74 35.7 / 10.5 0.71 Hilar 75.7 / 18.7 0.75 15.4 / 5.4 0.65 Upper Pole 15.1 / 5.2 0.66 19.6 / 5.0 0.74 Mid Pole 22.2 / 6.9 0.69 16.4 / 5.7 0.65 Lower Pole 27.4 / 6.9 0.75 1.12 Renal Aortic Ratio 1.28 Accleration Time (sec) 0.10 Hilar 0.10 0.04 Upper Pole 0.08 0.09 Mid Pole 0.07 0.07 Lower Pole 0.11 11.3 Kidney Length (cm) 10.7 CONCLUSIONS No sonographic evidence of hemodynamically significant renal artery stenosis bilaterally. No hydronephrosis in either kidney Ashok Drake MD (Electronically Signed) Final Date: 17 May 2024 11:34 S
== END 2024-05-17 07:04 | disposition home or self-care (01) ==
LOC: RAD 07:04
PROVIDERS: PCP Internal Medicine; Visit Provider Nurse Practitioner Family
DX: I12.9 Hypertensive chronic kidney disease with stage 1 through stage 4 chronic kidney disease, or unspecified chronic kidney disease (principal)
CPT/HCPCS: 93975

== ENCOUNTER → 2024-06-22 08:53 | Outpatient (BNVA) | payer OTHER, MEDICARE, SELFPAY | PROVIDERS: PCP Internal Medicine; Visit Provider Podiatrist Foot & Ankle Surgery | DX: I73.9 Peripheral vascular disease, unspecified (principal); L60.3 Nail dystrophy; E11.42 Type 2 diabetes mellitus with diabetic polyneuropathy; M25.371 Other instability, right ankle; Z79.84 Long term (current) use of oral hypoglycemic drugs | CPT/HCPCS: 99213 ==

== ENCOUNTER → 2024-08-31 09:07 | Outpatient (BNVA) | payer OTHER, SELFPAY | PROVIDERS: PCP Internal Medicine; Visit Provider Podiatrist Foot & Ankle Surgery | DX: E11.42 Type 2 diabetes mellitus with diabetic polyneuropathy (principal); L60.3 Nail dystrophy; I73.9 Peripheral vascular disease, unspecified; Z79.84 Long term (current) use of oral hypoglycemic drugs | CPT/HCPCS: 11721 ==

== ENCOUNTER 2024-11-04 08:23 | Outpatient (CLI) | payer OTHER, SELFPAY ==
--- NOTE | 2024-11-04 08:30 | CTR_ITS ---
PROCEDURE INFORMATION: Exam: CTA Abdomen and Pelvis With Contrast Exam date and time: 11/04/2024 9:11 AM Age: 79 years old Clinical indication: Condition or disease; Other: Aaa/pad TECHNIQUE: Imaging protocol: Computed tomographic angiography of the abdomen and pelvis with contrast. Exam focused on the arteries. 3D rendering (Not supervised by radiologist): MIP and/or 3D reconstructed images were created by the technologist. Radiation optimization: All CT scans at this facility use at least one of these dose optimization techniques: automated exposure control; mA and/or kV adjustment per patient size (includes targeted exams where dose is matched to clinical indication); or iterative reconstruction. Contrast material: OMNI 350; Contrast volume: 100 ml; Contrast route: INTRAVENOUS (IV); COMPARISON: CT kidney stone [id number] 12/27/2018 9:31 AM RADIATION DOSE METRICS: Total DLP (mGy-cm): 664.49 Other radiation dose metrics: VASCULATURE: FINDINGS: Lungs: Calcified granuloma in the right lower lobe. Dependent atelectasis in the lungs bilaterally. Small pneumatocele in the left lower lobe. Heart: Visualized portions of the heart are moderately enlarged. Coronary arteries: Extensive atherosclerotic calcification in the visualized coronary arteries. Aorta: Stable moderate calcified plaque. Stable 3.1 x 2.7 cm fusiform infrarenal abdominal aortic aneurysm (series 7, image 98 and series 6, image 71). Celiac trunk and mesenteric arteries: Stable moderate to severe calcified plaque at the origin/proximal celiac artery with 70% stenosis. Stable moderate calcified plaque at the origin/proximal superior mesenteric artery with 30% stenosis. The inferior mesenteric artery is unremarkable. Renal arteries: Stable scattered mild to moderate calcified plaque bilaterally. Right iliac arteries: Stable diffuse moderate to severe calcified plaque, particularly at the proximal right internal iliac artery with greater than 90% stenosis and the proximal right external iliac artery with greater than 90% stenosis. Right femoral/popliteal arteries: Stable moderate calcified plaque in the visualized right femoral arteries. Up to 50% stenosis in the right common femoral artery. The visualized right femoral artery is occluded just after its origin, this is new compared with 05/30/2021. Left iliac arteries: Stable moderate to severe calcified plaque, particularly in the proximal/mid left internal iliac artery with greater than 90% stenosis and in the mid/distal left external iliac artery with 50% stenosis. Left femoral/popliteal arteries: Stable moderate to severe calcified and noncalcified plaque with up to 40% stenosis in the left common femoral artery. Stable occlusion of the left femoral artery just beyond its origin. Liver: The liver is unremarkable. Gallbladder and biliary ducts: Stable calcified stone in the gallbladder. No gallbladder wall thickening. No biliary ductal dilatation. Pancreas: Stable moderate atrophy of the pancreatic parenchyma. No pancreatic ductal dilatation. Spleen: The spleen is unremarkable. Adrenal glands: The right and left adrenal glands are unremarkable. Kidneys and ureters: Stable non-obstructing stone in the right kidney measuring 4.7 mm (series 4, image 91). Stable mild atrophy of the left kidney. Stable subcentimeter hypodense focus in the left kidney that is too small to characterize, however likely represents a small cyst. The right and left ureters are unremarkable. Stomach and bowel: Numerous diverticula in the descending colon and sigmoid colon. No evidence for diverticulitis. No acute abnormality in the stomach, small bowel, or colon. Appendix: Appendix not definitely visualized. No inflammatory changes in the pericecal region however. Intraperitoneal space: No free intraperitoneal air. No ascites. No loculated fluid collections to suggest an abscess. Lymph nodes: No lymphadenopathy. Urinary bladder: Diffuse, mild bladder wall thickening. Reproductive: Nonspecific parenchymal calcifications in the prostate gland. Bones/joints: Degenerative changes in the spine, sacroiliac joints, and hips. Soft tissues: No acute abnormality in the extra-abdominal soft tissues. CT/CT angio abdomen pelvis [id number] IMPRESSION: 1. Redemonstration of moderate to severe atherosclerotic disease. 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 Chronicity is uncertain, this is new compared with CT angiogram/runoff dated 05/30/2021 however. Additional stable multilevel stenoses ranging from mild to severe in the abdomen and pelvis and stable occlusion of the visualized left femoral artery just after its origin. 2. Stable cholelithiasis. 3. Stable nonobstructing right renal stone. 4. Diffuse, mild bladder wall thickening. In the correct clinical setting, this may suggest cystitis. Recommend correlation with laboratory findings. Alternatively, this may be secondary to chronic outlet obstruction. 5. Descending colon and sigmoid colon diverticulosis. No evidence for diverticulitis. 6. Incidental/nonacute findings are listed in the report.
[2024-11-04 09:24] LABS: Blood Urea Nitrogen 11 mg/dL (8-23)
== END 2024-11-04 08:24 | disposition home or self-care (01) ==
PROVIDERS: Radiology Neuroradiology; PCP Electrodiagnostic Medicine; Visit Provider Family Medicine
DX: I71.43 Infrarenal abdominal aortic aneurysm, without rupture (principal); I70.201 Unspecified atherosclerosis of native arteries of extremities, right leg; K80.20 Calculus of gallbladder without cholecystitis without obstruction; N20.0 Calculus of kidney; N32.89 Other specified disorders of bladder; K57.30 Diverticulosis of large intestine without perforation or abscess without bleeding; J84.10 Pulmonary fibrosis, unspecified; J98.11 Atelectasis; J98.4 Other disorders of lung; I51.7 Cardiomegaly; I25.10 Atherosclerotic heart disease of native coronary artery without angina pectoris; I70.0 Atherosclerosis of aorta; I70.8 Atherosclerosis of other arteries; K55.1 Chronic vascular disorders of intestine; I70.1 Atherosclerosis of renal artery; I70.202 Unspecified atherosclerosis of native arteries of extremities, left leg; I70.291 Other atherosclerosis of native arteries of extremities, right leg; K86.89 Other specified diseases of pancreas; N26.1 Atrophy of kidney (terminal); R93.422 Abnormal radiologic findings on diagnostic imaging of left kidney; R93.89 Abnormal findings on diagnostic imaging of other specified body structures; M47.9 Spondylosis, unspecified; M46.1 Sacroiliitis, not elsewhere classified; M16.0 Bilateral primary osteoarthritis of hip
CPT/HCPCS: 74174; 82565; 84520

== ENCOUNTER → 2024-11-30 08:11 | Outpatient (BNVA) | payer OTHER, SELFPAY | PROVIDERS: PCP Electrodiagnostic Medicine; Visit Provider Podiatrist Foot & Ankle Surgery | DX: E11.8 Type 2 diabetes mellitus with unspecified complications (principal); L60.3 Nail dystrophy; I73.9 Peripheral vascular disease, unspecified; E11.42 Type 2 diabetes mellitus with diabetic polyneuropathy; M21.41 Flat foot [pes planus] (acquired), right foot; M21.42 Flat foot [pes planus] (acquired), left foot; M21.621 Bunionette of right foot; M21.622 Bunionette of left foot; Z79.84 Long term (current) use of oral hypoglycemic drugs | CPT/HCPCS: 99213 ==

== ENCOUNTER → 2025-01-11 14:14 | Outpatient (BNVA) | payer OTHER, SELFPAY | PROVIDERS: PCP Electrodiagnostic Medicine; Visit Provider Internal Medicine | DX: I73.9 Peripheral vascular disease, unspecified (principal); I71.40 Abdominal aortic aneurysm, without rupture, unspecified; Z79.82 Long term (current) use of aspirin; Z87.891 Personal history of nicotine dependence; R07.9 Chest pain, unspecified | CPT/HCPCS: 93005; 99204 ==

== ENCOUNTER → 2025-03-08 08:09 | Outpatient (BNVA) | payer OTHER, SELFPAY | PROVIDERS: PCP Electrodiagnostic Medicine; Visit Provider Podiatrist Foot & Ankle Surgery | DX: E11.42 Type 2 diabetes mellitus with diabetic polyneuropathy (principal); L60.3 Nail dystrophy; E11.8 Type 2 diabetes mellitus with unspecified complications; I73.9 Peripheral vascular disease, unspecified; M21.41 Flat foot [pes planus] (acquired), right foot; M21.42 Flat foot [pes planus] (acquired), left foot; M21.621 Bunionette of right foot; M21.622 Bunionette of left foot; Z79.84 Long term (current) use of oral hypoglycemic drugs | CPT/HCPCS: 11721 ==

== ENCOUNTER → 2025-05-23 09:06 | Outpatient (BNVA) | payer OTHER, SELFPAY | PROVIDERS: PCP Electrodiagnostic Medicine; Visit Provider Orthopaedic Surgery | DX: M19.011 Primary osteoarthritis, right shoulder (principal) | CPT/HCPCS: 99204 ==

== ENCOUNTER 2025-05-26 06:46 | Outpatient (CLI) | payer OTHER, SELFPAY ==
--- NOTE | 2025-05-26 07:15 | MR_ITS ---
WS: [id number] MRI RIGHT SHOULDER HISTORY: Right shoulder pain COMPARISON: None available. TECHNIQUE: Multiplanar sequences of the shoulder joint are submitted. Moderate to severe narrowing of the AC joint. Hypertrophic bone formation of the distal clavicle. Large lobulated cyst in the acromion. Moderate amount of fluid in the subacromial and subdeltoid bursa. Moderate subacromial impingement upon the supraspinatus tendon by osteophyte along the distal undersurface of the acromion. There is an os acromiale and synchondrosis. There is fluid along the synchondrosis and cystic changes on both sides of the os acromiale. Biceps tendon is present in the bicipital groove but there is a significant amount of increased fluid within the tendon sheath. High riding humeral head with osteophytic ridging around the humeral head. Marked cortical surface fraying of the humeral head and the acromion with loss of cartilage. Subchondral cyst in the posterior lateral humeral head. Moderate atrophy of the supraspinatus muscle. Complete supraspinatus tendon tear with retraction to the superior humeral head. Mild atrophy of the subscapularis tendon with intermediate signal. Tendinopathy involving the distal infraspinatus tendon. There is fluid along the infraspinatus tendon therefore there is probably a tear distally. Paralabral cyst measures 7 mm. Fluid track extends back to the anterior and inferior labrum where there are labral tears. Degenerative changes in the superior labrum and posterior labrum. There is a large amount of fluid in the subcoracoid bursa. This is often seen with full-thickness tears of the supr aspinatus tendon. MR/MR shoulder RT wo con* [id number] IMPRESSION: 1. Full-thickness tear of the supraspinatus with retraction to the superior hu meral head. Fraying of the visualized distal retracted supraspinatus tendon. 2. Large amount of fluid in the subcoracoid bursa which is often seen with rot ator cuff tears. 3. Moderate to severe AC joint arthritis. 4. Os acromiale is present. There is fluid along the synchondrosis suggesting there may be a acute synovitis or some instability along the synchondrosis. 5. Normal position of the biceps tendon with tenosynovitis. 6. Severe degenerative changes involving the humeral head and glenohumeral claudette nt and glenoid. 7. Moderate atrophy of the supraspinatus muscle. 8. Tendinopathy distal infraspinatus tendon. There is fluid along the infraspi natus tendon which is seen with interstitial tears. 9. Paralabral cyst with track extending to the anterior inferior labrum. Julia l tears are noted within the anterior inferior labrum. 10. Mild thinning of the subscapularis tendon with tendinopathy.
== END 2025-05-26 06:47 | disposition home or self-care (01) ==
LOC: RAD 06:47
PROVIDERS: PCP Electrodiagnostic Medicine; Visit Provider Orthopaedic Surgery
DX: M75.121 Complete rotator cuff tear or rupture of right shoulder, not specified as traumatic (principal); M19.011 Primary osteoarthritis, right shoulder; M62.511 Muscle wasting and atrophy, not elsewhere classified, right shoulder; M75.31 Calcific tendinitis of right shoulder
CPT/HCPCS: 73221

== ENCOUNTER → 2025-05-31 12:56 | Outpatient (BNVA) | payer OTHER, SELFPAY | PROVIDERS: PCP Electrodiagnostic Medicine; Visit Provider Podiatrist Foot & Ankle Surgery | DX: E11.42 Type 2 diabetes mellitus with diabetic polyneuropathy (principal); L60.3 Nail dystrophy; I73.9 Peripheral vascular disease, unspecified; Z79.84 Long term (current) use of oral hypoglycemic drugs | CPT/HCPCS: 11721 ==